=== PATIENT | male | born 1965 | race Two or more races ===

== ENCOUNTER 2022-05-12 15:00 | Emergency (ER) | payer SELFPAY ==
[2022-05-12] MEDS ORDERED: KETOROLAC TROMETH 60MG/2ML VIAL IM ONE (17:15)
[2022-05-12 18:00] VITALS: BP 166/105
[2022-05-12] MEDS ORDERED: IBUP800T27 PO (18:10)
[2022-05-12] MEDS ORDERED: PRED20TA2 PO (18:10)
== END 2022-05-12 18:19 | disposition home or self-care (01) ==
LOC: ER 15:00
DX: M50.30 Other cervical disc degeneration, unspecified cervical region (principal); M54.12 Radiculopathy, cervical region
CPT/HCPCS: 72040; 96372; 99283; J1885